=== PATIENT | male | born 1970 | race Hispanic/Latino ===

== ENCOUNTER 2017-07-20 07:40 | Emergency (ER) | payer OTHER ==
[2017-07-20 07:47] VITALS: TEMP 98; BMI 26.6
[2017-07-20] MEDS ORDERED: Sodium Chloride 0.9% 1,000 ML IV STA (08:49)
[2017-07-20 09:21] LABS: ALB/GLOB RATIO 1.6 (1.1-1.8); ALKALINE PHOSPHATASE 76 U/L (38-126); ALT/SGPT 37 U/L (7-56); AST/SGOT 27 U/L (17-59); BASO # 0.02 K/mm3 (0.0-2.0); BASO % 0.2 % (0.0-3.0); BILIRUBIN,TOTAL 0.4 mg/dL (0.2-1.3); BLOOD UREA NITROGEN 14 mg/dL (7-21); CALCIUM 9.8 mg/dL (8.4-10.5); CARBON DIOXIDE 28 mmol/L (21-33); CHLORIDE 104 mmol/L (98-107); EOS # 0.2 (0.0-0.7); EOS % 1.5 % (1.5-5.0); GFR AFRICAN-AMERICAN > 60; GLUCOSE,RANDOM 95 mg/dL (70-110); GRAN # 8.96 (1.4-6.5); GRAN % 78.1 % (50.0-68.0); HEMATOCRIT 45.2 % (42.0-52.0); LIPASE 49 U/L (23-300); LYMPH # 1.5 (1.2-3.4); LYMPH % 13.1 % (22.0-35.0); MEAN CELL VOLUME 87.4 fl (80.0-105.0); MEAN CORPUSCULAR HEMOGLOBIN 31.5 pg (25.0-35.0); MEAN CORPUSCULAR HGB CONC 36.1 g/dl (31.0-37.0); MEAN PLATELET VOLUME 10.3 fl (7.0-11.0); MONO # 0.8 (0.1-0.6); MONO % 7.1 % (1.0-6.0); POTASSIUM 4.4 mmol/L (3.6-5.0); RED CELL DISTRIBUTION WIDTH 12.9 % (11.5-14.5); SODIUM 143 mmol/L (132-148); TOTAL PROTEIN 7.5 g/dL (5.8-8.3); WHITE BLOOD COUNT 11.5 10^3/ul (4.5-11.0)
--- NOTE | 2017-07-20 09:55 | ED PDOC ---
Arrival/HPI - General Chief Complaint: Abdominal Pain Time Seen by Provider: 07/20/17 07:56 - History of Present Illness Narrative History of Present Illness (Text): 07/20/17 09:48 47 year old male presents to the emergency room with complaint of intermittent abdominal pain with vomitting and diarrhea. The pain started last night when he was getting ready for bed. The pain is intermittent cramping and squeezing in nature. He states that he vomited 5 times throughout the night. The vomit was his food from dinner, denied any blood or coffee ground emesis. He states the last 2 time he vomited, it was just bile. He states that he has had 2 episodes of diarrhea. The diarrhea was watery in nature, denies any blood or black colored stool. The patient states that he has not attempted to eat anything since he started vomiting. He currently does not have any pain. Denies f/c, sob , cp, lightheadedness, dizziness, palpitation, numbness or tingling. Denies any sick contacts. 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), denies any other illicit drug use Allergy: Penicillin (Zachariah Balbuena) Past Medical History - Provider Review Nursing Documentation Reviewed: Yes - Infectious Disease Hx of Infectious Diseases: None - Cardiac Hx Cardiac Disorders: No - Pulmonary Hx Respiratory Disorders: No - Neurological Hx Neurological Disorder: No - HEENT Hx HEENT Disorder: No - Renal Hx Renal Disorder: No - Endocrine/Metabolic Hx Endocrine Disorders: No - Hematological/Oncological Hx Blood Disorders: No - Integumentary Hx Dermatological Disorder: No - Musculoskeletal/Rheumatological Hx Musculoskeletal Disorders: No - Gastrointestinal Hx Gastrointestinal Disorders: Yes Hx Gastroesophageal Reflux: Yes - Genitourinary/Gynecological Hx Genitourinary Disorders: No - Psychiatric Hx Psychophysiologic Disorder: No Hx Depression: No Hx Emotional Abuse: No Hx Physical Abuse: No Hx Substance Use: No - Anesthesia Hx Anesthesia: No Hx Anesthesia Reactions: No Hx Malignant Hyperthermia: No - Suicidal Assessment Feels Threatened In Home Enviroment: No Family/Social History - Physician Review Nursing Documentation Reviewed: Yes Family/Social History: Unknown Family HX Smoking Status: Heavy Smoker > 10 Cigarettes Daily Hx Alcohol Use: Yes Frequency of alcohol use: Socially Hx Substance Use: No Hx Substance Use Treatment: No Allergies/Home Meds Allergies/Adverse Reactions: Allergies Penicillins Adverse Reaction (Verified 07/20/17 07:58) ANAPHYLAXIS Home Medications: Home Meds Medication Instructions Recorded Confirmed Lansoprazole [Prevacid] 30 mg PO DAILY 07/20/17 07/20/17 Review of Systems - Physician Review All systems were reviewed & negative as marked: Yes - Review of Systems Constitutional: Normal. absent: Fatigue, Weight Change, Fevers, Night Sweats Eyes: Normal. absent: Vision Changes ENT: Normal. absent: Sore Throat, Rhinorrhea Respiratory: Cough (chronic cough (smoker)). absent: SOB, Sputum, Wheezing Cardiovascular: absent: Chest Pain, Palpitations, Edema, Calf Pain Gastrointestinal: Abdominal Pain, Diarrhea, Nausea, Vomiting. absent: Constipation, Hematochezia, Hematemesis Genitourinary Male: Normal. absent: Dysuria, Frequency Musculoskeletal: Normal. absent: Arthralgias Skin: Normal. absent: Rash Neurological: Normal. absent: Headache, Dizziness, Focal Weakness Endocrine: Normal. absent: Diaphoresis Psychiatric: Normal Physical Exam Vital Signs Reviewed: Yes Temperature: Afebrile Blood Pressure: Hypertensive Pulse: Regular Respiratory Rate: Normal Appearance: Positive for: Well-Appearing, Non-Toxic, Comfortable Pain Distress: None Mental Status: Positive for: Alert and Oriented X 3 - Systems Exam Head: Present: Atraumatic, Normocephalic Extroacular Muscles: Present: EOMI Conjunctiva: Present: Normal Mouth: Present: Moist Mucous Membranes, Normal Lips, Normal Tounge, Normal Teeth Pharnyx: Present: Normal. No: ERYTHEMA, EXUDATE, TONSILS ENLARGED Nose (External): Present: Atraumatic Neck: Present: Normal Range of Motion Respiratory/Chest: Present: Clear to Auscultation. No: Respiratory Distress, Accessory Muscle Use, Wheezes, Tachypneic Cardiovascular: Present: Regular Rate and Rhythm, Normal S1, S2 Abdomen: No: Tenderness, Distention, Normal Bowel Sounds (hyperactive ), Peritoneal Signs Back: No: CVA Tenderness, Midline Tenderness, Paraspinal Tenderness Lower Extremity: Present: Normal Inspection, NORMAL PULSES. No: Edema, CALF TENDERNESS Neurological: Present: GCS=15 Skin: Present: Warm, Dry, Normal Color Psychiatric: Present: Alert, Oriented x 3, Normal Insight, Normal Concentration Medical Decision Making ED Course and Treatment: 07/20/17 09:58 Vomiting/Diarrhea - CBC/CMP - WNL - Lipase - 49 - Given one liter bolus of NS - Given Zofran 8mg IVP Dispo: Home. Given prescription for Zofran. Instructed patient to follow up with PMD. If symptoms worsen, please return to the ED. (Zachariah Balbuena) 07/20/17 10:25 Patient Seen With Resident: In agreement with resident note and more details are present in their notes. Patient was seen and evaluated with resident, came up with plan and treatment together. 47 year old M p/w vomiting and loose stools. On exam, abdomen soft, nontender. (Saurav Anderson) - Lab Interpretations Lab Results: 07/20/17 09:07 07/20/17 09:07 Lab Results 07/20/17 09:07: Sodium 143, Potassium 4.4, Chloride 104, Carbon Dioxide 28, Anion Gap 15, BUN 14, Creatinine 1.0, Est GFR ( Amer) > 60, Est GFR (Non- Af Amer) > 60, Random Glucose 95, Calcium 9.8, Total Bilirubin 0.4, AST 27, ALT 37, Alkaline Phosphatase 76, Total Protein 7.5, Albumin 4.6, Globulin 2.9, Albumin/Globulin Ratio 1.6, Lipase 49 07/20/17 09:07: WBC 11.5 H, RBC 5.17, Hgb 16.3, Hct 45.2, MCV 87.4, MCH 31.5, MCHC 36.1, RDW 12.9, Plt Count 251, MPV 10.3, Gran % 78.1 H, Lymph % (Auto) 13.1 L, [place] % (Auto) 7.1 H, Eos % (Auto) 1.5, Baso % (Auto) 0.2, Gran # 8.96 H , Lymph # 1.5, [place] # 0.8 H, Eos # 0.2, Baso # 0.02 - Medication Orders Current Medication Orders: Discontinued Medications Sodium Chloride (Sodium Chloride 0.9%) 1,000 mls @ 999 mls/hr IV .Q1H1M STA Stop: 07/20/17 09:49 Last Admin: 07/20/17 09:06 Dose: 999 mls/hr Ondansetron HCl (Zofran Inj) 8 mg IVP STAT STA Stop: 07/20/17 08:51 Last Admin: 07/20/17 09:06 Dose: 8 mg Disposition/Present on Arrival - Present on Arrival Any Indicators Present on Arrival: No History of DVT/PE: No History of Uncontrolled Diabetes: No Urinary Catheter: No History of Decub. Ulcer: No History Surgical Site Infection Following: None - Disposition Have Diagnosis and Disposition been Completed?: Yes Disposition Time: 10:02 Patient Plan: Discharge - Disposition Diagnosis: Vomiting and diarrhea Disposition: HOME/ ROUTINE Condition: IMPROVED Discharge Instructions (ExitCare): Gastroenteritis (ED) Prescriptions: Ondansetron ODT [Zofran ODT] 4 mg PO Q8H PRN #12 odt PRN Reason: Nausea/Vomiting Referrals: PCP,NO [Primary Care Provider] - Follow up with primary Forms: [employer] ([place] Citizen)
[2017-07-20 10:25] VITALS: BP 127/69; PULSE 78; RESP 17; O2SAT 97
== END 2017-07-20 10:26 | disposition home or self-care (01) ==
LOC: ED 07:40
DX: R19.7 Diarrhea, unspecified (principal); R11.10 Vomiting, unspecified
CPT/HCPCS: 80053; 83690; 85025; 96361; 96374; 99284; J2405; J7040